=== PATIENT | male | born 1950 | race Caucasian/White ===

== ENCOUNTER 2020-08-10 08:37 | Outpatient (CLI) | payer MEDICARE, SELFPAY | END 2020-08-10 08:38 | disposition home or self-care (01) | PROVIDERS: PCP Family Medicine; Visit Provider Otolaryngology | DX: H90.41 Sensorineural hearing loss, unilateral, right ear, with unrestricted hearing on the contralateral side (principal); H90.72 Mixed conductive and sensorineural hearing loss, unilateral, left ear, with unrestricted hearing on the contralateral side; H69.80 Other specified disorders of Eustachian tube, unspecified ear | CPT/HCPCS: 92557; 92567 ==

== ENCOUNTER 2020-08-21 09:51 | Outpatient (NON) | payer MEDICARE, SELFPAY | END 2020-08-21 09:52 | PROVIDERS: PCP Family Medicine; Visit Provider Otolaryngology | DX: H60.92 Unspecified otitis externa, left ear (principal) | CPT/HCPCS: 87070; 87075; 87077; 87147; 87186; 87205 ==

== ENCOUNTER 2021-05-18 07:55 | Outpatient (CLI) | payer MEDICARE, SELFPAY ==
--- NOTE | 2021-05-18 08:00 | ECG_ITS ---
Measurements Intervals [place] Rate: 56 P: 31 MD: 195 QRS: -4 QRSD: 101 T: 63 QT: 402 QTc: 388 Interpretive Statements SINUS BRADYCARDIA ATRIAL PREMATURE COMPLEXES EARLY PRECORDIAL R/S TRANSITION VOLTAGE CRITERIA FOR LVH BASELINE ARTIFACT- I, II, III, AVR, AVL, AVF BORDERLINE ECG Electronically Signed On 05-18-2021 9:52:53 CDT by Varghese Fairbanks D.O.
[2021-05-18 09:00] LABS: Anion Gap 9 mmol/L (8-16); Blood Urea Nitrogen 13 mg/dL (9-20); Calcium 9.3 mg/dL (8.4-10.2); Carbon Dioxide 30 mmol/L (22-30); Chloride 101 mmol/L (98-107); Estimated Glomerular Filt Rate > 60; Glucose 118 mg/dL (75-110); Sodium 140 mmol/L (137-145)
== END 2021-05-18 07:56 | disposition home or self-care (01) ==
LOC: ANHSURGERY 07:59
PROVIDERS: Anesthesiology; PCP Family Medicine; Visit Provider Otolaryngology
DX: I10 Essential (primary) hypertension (principal); R94.31 Abnormal electrocardiogram [ECG] [EKG]
CPT/HCPCS: 36415; 80048; 93005

== ENCOUNTER 2021-05-21 00:54 | Day surgery (SDC) | payer MEDICARE, SELFPAY ==
[2021-05-14 10:51] VITALS: BMI 30.8
--- NOTE | 2021-05-20 08:04 | PM.IMHP ---
H&P: HPI History of Present Illness Date/Time: 05/20/21 08:04Patient presents with a history of bilateral eustachian tube dysfunction. Presents for planned surgical procedure. Reports no new symptoms or changes in history. Chief Complaint: Eustachian tube dysfunction, hearing loss, otitis media Review of Systems Constitutional: Constitutional: Denies fatigue, Denies fever(s) and Denies lethargy Eyes: Eyes: Denies blurry vision and Denies change in vision ENT: Reports as per HPI Cardiovascular: Cardiovascular: Denies chest pain Respiratory: Respiratory: Denies cough Endocrine: Endocrine: Denies fatigue Hematologic/Lymphatic: Hematologic/Lymphatic: Denies easy bleeding, Denies easy bruising and Denies lymphadenopathy Allergic/Immunologic: Allergic/Immunologic: Denies seasonal rhinorrhea [facility] Past Medical History Medical History (Updated 12/21/20 @ 08:53 by Ninoska Cuevas) Abnormal tympanic membrane of right ear BMI 30.0-30.9,adult Colon cancer screening Hyperlipidemia Osteoarthritis, multiple sites Perforated left tympanic membrane on examination Prostate cancer screening Skin tag Family History Family History Father Family history of lung cancer Mother Diabetes mellitus Social History Social History Smoking packs per day: 1.5 Smoking cigarettes per day: 30.0 Years smoked: 45 Smoking pack-years: 67.50 Smoking status: Former smoker Tobacco type: cigarettes Second hand tobacco smoke exposure: No Smoking end date: 11/13/07 Alcohol intake: current Drinks per week: 14 Substance use: never Substance use type: does not use Gender identity (if verbalized by the patient): Male Spiritual care concerns: No Agree to blood products: Yes Meds Home Medications and Allergies Home Medications Medication Instructions Recorded Confirmed Type safety needles 18 gauge x 1 #6 each 08/18/20 03/29/21 Rx safety needles 21 gauge x 1 1/2 #6 each 08/18/20 03/29/21 Rx syringe (disposable) 3 mL #6 each 08/18/20 03/29/21 Rx aspirin 81 mg tablet,delayed 81 mg PO DAILY 09/08/20 05/14/21 History release metoprolol tartrate 100 mg tablet 100 mg PO DAILY #90 tablet 09/24/20 05/14/21 Rx testosterone cypionate 200 mg/mL 300 mg IM MONTHLY #5 ml 11/16/20 05/14/21 Rx intramuscular oil lovastatin 20 mg tablet 20 mg PO QPM #90 tablet 12/24/20 05/14/21 Rx metformin 500 mg tablet 500 mg PO BID #180 tablet 12/24/20 05/14/21 Rx lisinopril 30 mg tablet 30 mg PO DAILY #90 tablet 12/29/20 05/14/21 Rx multivitamin [One A Day Vitamin] 1 tablet PO DAILY 05/14/21 05/14/21 History Allergies Allergy/AdvReac Type Severity Reaction Status Date / Time diclofenac Allergy Unknown Unknown Verified 05/14/21 10:33 Exam Const: General: cooperative, healthy appearing, comfortable, well developed and alert HENMT: Head: normal to inspection, normocephalic and atraumatic Ears: hearing grossly normal bilaterally, external ears normal, TM's abnormal bilaterally ( right retracted left effusion) and EAC's normal General nose exam: Normal external nose present, Normal nares present, No nasal polyps present, Normal nasal mucous membranes and turbinates present and Normal septum present Face and sinus: normal facial exam Mouth: Yes Normal oral and palatal mucosa present, Yes lip normal, Yes tongue normal, Yes oropharynx normal and Yes moist mucous membranes Teeth and gingiva: dentition normal and gingiva normal Throat: posterior oropharynx normal, tonsils normal and uvula midline Eyes: General: appearance normal, both eyes and all related structures Periorbital: periorbital findings normal Eyelids: eyelids normal Conjunctivae: conjunctivae normal Sclera: sclerae normal Neck: Neck: normal visual inspection, full ROM and no lymphadenopathy Thyroid: thyroid normal Lymphatic: no lymphadenopathy noted Res
[2021-05-21] VITALS (8 sets, daily range): BP systolic 107–144; BP diastolic 68–93; PULSE 47–90; RESP 15–24; TEMP 35.9–36.8; O2SAT 93–100
[2021-05-21] MEDS: ACETAMINOPHEN 500 MG TABLET 1000 MG PO (06:34)
[2021-05-21] MEDS: LACTATED RINGERS 1,000 ML 30 ML IV CONT (06:34)
[2021-05-21 06:43] LABS: Glucose Point of Care 125 mg/dl (65-105)
--- NOTE | 2021-05-21 06:45 | WPDANESEPPF ---
Anes - Initial Pre Proc Eval Procedure: Operation Date: 05/21/21 07:30 Proposed Procedures p Nasal Endoscopy, - Heriberto Reynolds MD s Bilateral Eustachian Tube Dilation - Heriberto Reynolds MD Date/Time: 05/21/21 06:45 Surgeon: Heriberto Reynolds MD Pre Op Diagnosis: bilat eustachian tube dysfunction Patient Data Age: 71 Gender: M Height: 1.96 m Weight: 119 kg Allergies Allergy/AdvReac Type Severity Reaction Status Date / Time diclofenac Allergy Unknown Unknown Verified 05/14/21 10:33 Home Medications Medication Instructions Recorded Confirmed Type safety needles 18 gauge x 1 #6 each 08/18/20 03/29/21 Rx safety needles 21 gauge x 1 1/2 #6 each 08/18/20 03/29/21 Rx syringe (disposable) 3 mL #6 each 08/18/20 03/29/21 Rx aspirin 81 mg tablet,delayed 81 mg PO DAILY 09/08/20 05/14/21 History release metoprolol tartrate 100 mg tablet 100 mg PO DAILY #90 tablet 09/24/20 05/14/21 Rx testosterone cypionate 200 mg/mL 300 mg IM MONTHLY #5 ml 11/16/20 05/14/21 Rx intramuscular oil lovastatin 20 mg tablet 20 mg PO QPM #90 tablet 12/24/20 05/14/21 Rx metformin 500 mg tablet 500 mg PO BID #180 tablet 12/24/20 05/14/21 Rx lisinopril 30 mg tablet 30 mg PO DAILY #90 tablet 12/29/20 05/14/21 Rx multivitamin [One A Day Vitamin] 1 tablet PO DAILY 05/14/21 05/14/21 History Laboratory Tests 05/21/21 06:33 POC Capillary Glucose 125 mg/dl H mg/dl (65-105) Patient hx anesthesia problems: none Family hx anesthesia problems: none PMFSH Past Medical History Medical History Abnormal tympanic membrane of right ear BMI 30.0-30.9,adult Colon cancer screening Hyperlipidemia Osteoarthritis, multiple sites Perforated left tympanic membrane on examination Prostate cancer screening Skin tag Family History Family History Father Family history of lung cancer Mother Diabetes mellitus Social History Social History Smoking packs per day: 1.5 Smoking cigarettes per day: 30.0 Years smoked: 45 Smoking pack-years: 67.50 Smoking status: Former smoker (Quit 15 years ago) Tobacco type: cigarettes Second hand tobacco smoke exposure: No Smoking end date: 11/13/07 Alcohol intake: current Drinks per week: 14 Substance use: never Substance use type: does not use Living arrangements: with family Gender identity (if verbalized by the patient): Male Spiritual care concerns: No Agree to blood products: Yes Anes - Eval Final PreProcedure Day of Procedure 05/21/21 06:45 Patient weight: obese Heart: regular rate and rhythm Lungs: clear to auscultation Airway: Mallampati scale class II Neurological: alert and oriented Last oral intake: >/= 8 hours ASA classification: III Emergent: no Anesthetic plan: proceed Anesthesia type and monitoring: general LMA and standard monitoring Informed Consent: The patient's anesthetic plan and its attendant risks and benefits were discussed with the patient/family/POA. Questions were solicited and answers provided to the satisfaction of the patient/family/POA.
--- NOTE | 2021-05-21 07:08 | WPDHPUPDATE1 ---
History and Physical Update Update Date/Time: 05/21/21 07:08 History and Physical has been reviewed, including an updated exam of the patient. There are NO changes in the patient's condition. Risks, benefits, and alternatives have been discussed and questions answered. Patient agrees to proceed with procedure.
[2021-05-21] MEDS: OXYMETAZOLINE HCL 0.05% NAS 15 ML BTL (*BKC) 1 SPRAY NASAL (07:43)
--- NOTE | 2021-05-21 08:09 | P.OP_ITS ---
Procedure Note - Detailed Date of Procedure 05/21/21 Pre-op Diagnosis bilat eustachian tube dysfunction Post-op Diagnosis same Procedure Performed 1. Nasal endoscopy 2. Bilateral eustachian tube dysfunction Surgeon Heriberto Reynolds MD Anesthesia general Indications hearing loss, chronic otitis media, bilateral eustachian tube dysfunction Findings successful dilation bilaterally left inferior septal deviation boggy posterior left inferior turbinate Description of Procedure the patient was correctly identified and consent was verified in the preoperative holding area. The patient was then brought to the operating room and a time-out was performed. General anesthesia was induced and endotracheal tube was secured the patient's airway and taped to the left lower lip. The patient was then prepped and draped for the aforementioned procedures Afrin- soaked pledgets were inserted for 5 minutes and then removed. Under 0 degree endoscopic guidance the bilateral nasal passages were examined with the aforeme ntioned findings noted. The balloon device was inserted in the right nasal passage, inserted into the eustachian tube orifice, and inflated to 12 atmospheres for 2 minutes. It was then removed the same procedure was performed on the left side. On the left side there scant bleeding from the inferior turbinate hypertrophy and septal deviation. Implants None Estimated Blood Loss 1 Drains No Packing No Pathology none sent Complications No immediate complications Condition stable Disposition PACU
[2021-05-21 08:13] LABS: Glucose Point of Care 121 mg/dl (65-105)
--- NOTE | 2021-05-21 08:55 | SUR.PHASEI ---
0850- PT HEART RATE 55, RHYTHM IRREGULAR. P WAVES NOTED. SINUS RHYTHM NOTED.CALLED DR. AMBROSE TO REVIEW. DR. AMBROSE TO BEDSIDE IN PACU.
== END 2021-05-21 09:50 | disposition home or self-care (01) ==
PROVIDERS: PCP Family Medicine; Visit Provider Otolaryngology
PROC: (CPT 69706; principal; 2021-05-21 07:30)
PROC: (CPT 69706; 2021-05-21 07:30)
DX: H69.80 Other specified disorders of Eustachian tube, unspecified ear (principal); E78.5 Hyperlipidemia, unspecified; Z87.891 Personal history of nicotine dependence; Z79.82 Long term (current) use of aspirin; Z79.84 Long term (current) use of oral hypoglycemic drugs; E66.9 Obesity, unspecified; Z68.31 Body mass index [BMI] 31.0-31.9, adult
CPT/HCPCS: 69706; 82948; A9270; C1726; J0330; J1100; J2250; J2405; J2704; J3010; J7120

== ENCOUNTER 2022-01-23 10:53 | Emergency (ER) | payer MEDICARE, SELFPAY ==
--- NOTE | ~2022-01-23 | XR_ITS ---
EXAMINATION: XR hip RT min 3V w AP pelvis DATE: 01/23/2022 12:19 INDICATION: Right hip pain. TECHNIQUE: An anteroposterior view of the pelvis and 3 views of right hip were obtained. COMPARISON: None. FINDINGS: Bone alignment is normal. No fracture. There is mild osteoarthritis of the hips. There is s evere lumbar spondylosis. IMPRESSION: 1. Mild osteoarthritis of the hips. Reviewed, dictated and finalized at location A.
--- NOTE | ~2022-01-23 | US_ITS ---
EXAMINATION: US venous doppler LE RT DATE: 01/23/2022 13:05 INDICATION: Right lower limb pain. TECHNIQUE: Grayscale ultrasound images without and with compression and Doppler ultrasound images of the right lower extremity veins were obtained. COMPARISON: None. FINDINGS: The visualized portions of right common femoral vein, profunda (deep) femoral vein, femoral vein, per vivas veins, posterior tibial veins, and greater saphenous vein outflow are patent. Again seen is per ipheral thrombus in right popliteal vein. IMPRESSION: 1. Deep vein thrombosis in right popliteal vein, which may be recurrent or chronic. Reviewed, dictated and finalized at location A. IMPRESSION: 1. Deep vein thrombosis in right popliteal vein, which may be recurrent or chr onic.
--- NOTE | ~2022-01-23 | XR_ITS ---
EXAMINATION: XR lumbar spine 2-3V DATE: 01/23/2022 12:19 INDICATION: Low back pain. TECHNIQUE: 3 views of lumbar spine were obtained. COMPARISON: Lumbar spine MRI 09/10/2019 FINDINGS: There is 7 degrees dextrocurvature of the spine. Vertebral body heights are normal. There i s severely decreased disc height at L1-L2, moderately decreased disc height at L2-L3 and L3-L4, and m ildly decreased disc height at L4-L5 with endplate remodeling. There is multilevel severe facet joint osteoarthritis. IMPRESSION: 1. Severe lumbar spondylosis. Reviewed, dictated and finalized at location A.
--- NOTE | ~2022-01-23 | US_ITS ---
EXAMINATION: US breast RT limited DATE: 01/23/2022 12:57 INDICATION: Right breast erythema. TECHNIQUE: Multiple grayscale and Doppler ultrasound images of the right breast were obtained. COMPARISON: None FINDINGS: In the patient's area of concern in the right breast at 12:00, 3 cm from the nipple, there is a 7 x 3 x 9 mm hypoechoic nonshadowing subcutaneous mass. IMPRESSION: 1. 7 x 3 x 9 mm hypoechoic subcutaneous mass in the right breast at 12:00, likely phlegmon. No draina ble fluid. Reviewed, dictated and finalized at location A. IMPRESSION: 1. 7 x 3 x 9 mm hypoechoic subcutaneous mass in the right breast at 12:00, like ly phlegmon. No drainable fluid.
[2022-01-23 11:00] VITALS: BP 174/89; PULSE 62; RESP 16; TEMP 36.5; O2SAT 95
--- NOTE | 2022-01-23 12:17 | ED.GENADULT ---
HPI - General Adult General Chief complaint: Unspecified Stated complaint: R leg pain Time Seen by Provider: 01/23/22 11:36 Source: patient Mode of arrival: ambulatory Limitations: no limitations History of Present Illness HPI narrative: This is a 71-year-old male that presents to the emergency department for right hip pain present over the last week. No known injury or trauma. Reports the pain is worse with walking and relieved with rest. He has intermittently been taking ibuprofen for pain. Reports he has had a blood clot before which concerned him and prompted him to be seen. Also reports a wound to the left great toe for which he is seeing a repair miller and is on Augmentin. Reports a wound to the right breast. Denies fever, chest pain, shortness of breath, erythema or edema of the leg, or numbness. Related Data Home Medications Medication Instructions Recorded Confirmed aspirin 81 mg tablet,delayed 81 mg PO DAILY 09/08/20 09/20/21 release multivitamin 1 tablet PO DAILY 05/14/21 09/20/21 amoxicillin-pot clavulanate 1 tablet PO Q12H 01/23/22 01/23/22 Allergies Allergy/AdvReac Type Severity Reaction Status Date / Time diclofenac Allergy Unknown Unknown Verified 01/23/22 11:17 Review of Systems Review of Systems: CONSTITUTIONAL: Denies fever SKIN: Denies rash MUSCULOSKELETAL: Reports back pain, joint pain, and myalgia. NEUROLOGIC: Denies numbness, or weakness. All systems reviewed & are unremarkable except as noted in HPI and below PMFSH Past Medical History Medical History Abnormal tympanic membrane of right ear BMI 30.0-30.9,adult Colon cancer screening Hyperlipidemia Osteoarthritis, multiple sites Perforated left tympanic membrane on examination Prostate cancer screening Skin tag Family History Family History Father Family history of lung cancer Mother Diabetes mellitus Social History Social History Smoking packs per day: 1.5 Smoking cigarettes per day: 30.0 Years smoked: 45 Smoking pack-years: 67.50 Tobacco type: cigarettes Second hand tobacco smoke exposure: No Smoking end date: 11/13/07 Alcohol intake: current Drinks per week: 14 Substance use: never Substance use type: does not use Gender identity (if verbalized by the patient): Male Sexual Orientation (if Verbalized by the Patient): Straight or Heterosexual Spiritual care concerns: No Agree to blood products: Yes Exam Narrative: GENERAL: Well-appearing, well-nourished, and in no acute distress. HEAD: Normocephalic, atraumatic. EYES: EOMI. CHEST: No respiratory distress. Right breast with 2cm cystic area with mild surrounding erythema HEART: Regular rate BACK: No midline spinal tenderness EXTREMITIES: Normal range of motion. No edema or erythema. Strength equal in bilateral lower extremities (5/5). Small wound to the left great toe without erythema, edema or abnormal drainage, appears to be healing SKIN: Warm, dry, no rash. NEURO: No focal deficits. Alert and oriented x3. PSYCH: Normal mood and affect Course Vital Signs Vital signs: Vital Signs Temperature 97.7 F 01/23/22 11:00 Pulse Rate 62 01/23/22 11:00 Respiratory Rate 16 01/23/22 11:00 Blood Pressure 174/89 H 01/23/22 11:00 Pulse Oximetry 95 01/23/22 11:00 Temperature 97.7 F 01/23/22 11:00 Pulse Rate 62 01/23/22 11:00 Respiratory Rate 16 01/23/22 11:00 Blood Pressure 174/89 H 01/23/22 11:00 Pulse Oximetry 95 01/23/22 11:00 Medical Decision Making MDM Narrative Medical decision making narrative: Patient presents to the emergency department for several complaints. Reporting right upper leg pain. Reporting a cyst on his right breast. Also reporting a wound to the left great toe. He is afebrile and nontoxic-appearing. He denies an
[2022-01-23 13:17] LABS: Basophils Absolute Auto 0.1 K/mm3 (0.0-0.1); Basophils Percent Auto 0.6 % (0.2-1.2); Eosinophils Absolute Auto 0.1 K/mm3 (0-0.3); Hematocrit 47.5 % (42.0-52.0); Hemoglobin 16.1 g/dL (14.0-18.0); Immature Granulocyte Absolute 0.03 K/mm3 (0.00-0.031); Immature Granulocyte Percent A 0.4 % (0-0.5); Lymphocytes Absolute Auto 1.42 K/mm3 (0.9-3.2); Lymphocytes Percent Auto 17.3 % (18.3-44.2); Mean Corpuscular HGB Conc 33.9 g/dl (32-36); Mean Corpuscular Hemoglobin 35.9 pg (26-34); Mean Corpuscular Volume 105.8 fl (80-100); Mean Platelet Volume 9.3 fl (7.4-10.4); Monocytes Absolute Auto 0.8 K/mm3 (0.1-0.6); Monocytes Percent Auto 9.4 % (2.6-8.5); Neutrophils Absolute Auto 5.9 K/mm3 (1.3-6.7); Neutrophils Percent Auto 71.3 % (45.5-73.1); Platelet Count Result 215 k/mm3 (150-375); Red Blood Count 4.49 M/mm3 (4.6-6.20); Red Cell Distribution Width 13.2 % (11.5-14.5); White Blood Count 8.2 K/mm3 (4.5-10.0)
[2022-01-23 13:27] LABS: INR 1.1; Partial Thromboplastin Time 24.8 SECONDS (22.3-36.8); Prothrombin Time 13.4 Seconds (11.1-14.7)
[2022-01-23 13:34] LABS: Anion Gap 7 mmol/L (8-16); Blood Urea Nitrogen 16 mg/dL (9-20); Calcium 9.9 mg/dL (8.4-10.2); Carbon Dioxide 28 mmol/L (22-30); Chloride 105 mmol/L (98-107); Estimated CRCL calculation 121 ml/min; Estimated Glomerular Filt Rate > 60; Glucose 101 mg/dL (65-110); Potassium 4.9 mmol/L (3.4-5.0); Sodium 140 mmol/L (137-145)
[2022-01-23 13:48] LABS: Erythrocyte Sedimentation Rate 1 mm/hr (0-20)
[2022-01-23 13:49] LABS: CRP < 0.5 mg/dL (<1.0)
--- NOTE | 2022-01-23 15:22 | PCCCNOTE ---
Called to pharmacy to velasco Xarelto 15mg BID for 21 days/ 20mg daily, per pharmacy will be 300 dollars., since patient has to meet a prescription deductible. Information provided to JOSE R Bauman, 30 day trial offer does include starter pack. Met w/ patient and at bedside, and explained cost of 300 dollars due to deductible. Explained trial offer and encouraged to call [employer] customer service for additional savings offers. verbalized understanding and will review their deductible coverage.
== END 2022-01-23 15:26 | disposition home or self-care (01) ==
PROVIDERS: Physician Assistant; Emergency Provider Emergency Medicine; PCP Family Medicine
DX: I82.431 Acute embolism and thrombosis of right popliteal vein (principal); L03.313 Cellulitis of chest wall; E78.5 Hyperlipidemia, unspecified; M19.90 Unspecified osteoarthritis, unspecified site; Z87.891 Personal history of nicotine dependence; Z79.82 Long term (current) use of aspirin; M47.816 Spondylosis without myelopathy or radiculopathy, lumbar region; M16.0 Bilateral primary osteoarthritis of hip; N63.11 Unspecified lump in the right breast, upper outer quadrant
CPT/HCPCS: 36415; 72100; 73502; 76642; 80048; 85025; 85610; 85652; 85730; 86140; 93971; 99284; A9270

== ENCOUNTER 2022-02-15 14:04 | Outpatient (CLI) | payer MEDICARE, SELFPAY ==
--- NOTE | ~2022-02-15 | US_ITS ---
EXAMINATION: US art doppler w press LE BI DATE: 02/15/2022 15:03 INDICATION: Type 2 diabetes with foot ulcer TECHNIQUE: Segmental pressures and plethysmographic and Doppler waveforms of the brachial and lower e xtremity arteries were obtained. COMPARISON: None. FINDINGS: Right and left brachial artery pressures of 147 mm Hg and 136 mm Hg, respectively, are concordant (no rmal difference <= 30 mmHg). The left high-thigh pressure index is 1.12 (normal > 1.2). The right hig h thigh pressure index was unable to be obtained due to inability to occlude the vessel at the right thigh. The right ankle-brachial index (AJ) is 0.99 (normal >= 0.9-1). The right great toe-brachial index (T BI) is 0.72 (normal >= 0.6-0.8). The right lower extremity segmental pressure gradients are increased between the right [id number] popliteal artery and the arteries at the right ankle (normal gradie nts <= 20-30 mmHg between adjacent levels on the same leg or the same levels on the two legs). Arteri al waveforms are biphasic with brisk systolic upstrokes throughout the arteries of the right lower li mb. The left AJ is 1.08. The left TBI is 0.72. The left lower extremity segmental pressure gradients are increased between the left dorsalis pedis artery and the left [id number] popliteal artery and po sterior tibial artery. Arterial waveforms are biphasic with brisk systolic upstrokes throughout the a rteries of the left lower limb. IMPRESSION: 1. No significant arterial occlusive disease in the lower limbs with normal bilateral ABIs and TBIs. Reviewed, dictated and finalized at location B. IMPRESSION: 1. No significant arterial occlusive disease in the lower limbs with normal jorge ateral ABIs and TBIs.
== END 2022-02-15 14:05 | disposition home or self-care (01) ==
PROVIDERS: PCP Family Medicine; Visit Provider Podiatrist Foot & Ankle Surgery
DX: E11.621 Type 2 diabetes mellitus with foot ulcer (principal); Z79.4 Long term (current) use of insulin; L97.529 Non-pressure chronic ulcer of other part of left foot with unspecified severity; L97.519 Non-pressure chronic ulcer of other part of right foot with unspecified severity
CPT/HCPCS: 93923

== ENCOUNTER → 2022-03-09 06:56 | Outpatient (CLI) | payer MEDICARE, SELFPAY ==
--- NOTE | ~2022-03-09 | MR_ITS ---
EXAMINATION: MR lumbar spine wo con DATE: 03/09/2022 07:32 INDICATION: Lumbar radiculopathy TECHNIQUE: Magnetic resonance imaging (MRI) of the lumbar spine was performed without intravenous con trast. Sequences included sagittal T2-weighted FSE, sagittal T2-weighted FS FSE, sagittal T1-weighted FSE, and axial T2-weighted FSE. COMPARISON: Radiographs dated 01/23/2022 and MRI dated 09/10/2019 FINDINGS: Lumbarized S1 segment with 5 more cephalad lumbar segments L1-L5. 2 mm retrolisthesis L2 on L3 and L3 on L4 and 2 mm anterolisthesis L5 on S1. Minimal anterior wedging at T12 and L1. There small lymph n odes throughout multiple endplates in the lower thoracic and mid and upper lumbar spine. Severe disc height loss at T12-L1, L1-L2 and L2-L3 with associated mild fibrofatty degenerative endplate changes. Marrow signal is otherwise normal throughout. Additional moderate disc height loss at T11-T12, L3-L4 and L4-L5. The conus medullaris terminates at L1-L2. There is normal signal in the caudal spinal cor d. Partially visualized 4.2 cm left renal cyst. Paravertebral soft tissues are otherwise unremarkable . The following disc levels are specifically discussed: T12-L1: Disc is bulging with annular fissure. There is mild left and moderate right facet joint osteo arthritis. There is moderate bilateral neural foraminal stenosis. There is mild to moderate central c anal stenosis with mild indentation of the ventral surface of the cord. L1-L2: Disc is bulging with annular fissure. There is moderate bilateral facet joint osteoarthritis. There is moderate left and mild to moderate right neural foraminal stenosis. There is mild central ca nal stenosis. L2-L3: Disc is bulging with annular fissure. There is moderate left and mild to moderate right facet joint osteoarthritis. There is moderate bilateral neural foraminal stenosis. There is mild central ca nal stenosis. L3-L4: Disc is bulging with annular fissure. There is moderate left and mild right facet joint osteoa rthritis. There is mild to moderate bilateral neural foraminal stenosis. There is moderate central ca nal stenosis. L4-L5: Disc is bulging. There is severe bilateral facet joint osteoarthritis. There is mild left and mild to moderate right neural foraminal stenosis. There is mild central canal stenosis. L5-S1: Disc is bulging with annular fissure. There is severe bilateral facet joint osteoarthritis. Th ere is mild bilateral neural foraminal stenosis. There is no central canal stenosis. IMPRESSION: 1. Minimal change in severe lumbar spondylosis. Reviewed, dictated and finalized at location B.
== END ==
PROVIDERS: PCP Family Medicine; Visit Provider Physical Medicine & Rehabilitation
DX: M47.26 Other spondylosis with radiculopathy, lumbar region (principal)
CPT/HCPCS: 72148

== ENCOUNTER 2022-03-22 13:01 | Outpatient (CLI) | payer MEDICARE, SELFPAY ==
--- NOTE | ~2022-03-22 | US_ITS ---
EXAMINATION: US scrotum doppler DATE: 03/22/2022 14:40 INDICATION: Right scrotal pain. TECHNIQUE: Grayscale and Doppler ultrasound images of the testes were obtained. COMPARISON: None. FINDINGS: The right testis measures 3.6 x 2.9 x 2.3. The left testis measures 3.7 x 3.4 x 1.9. There is normal vascular flow to both testes. The right epididymis is normal with normal vascular flow. The left epididymis is normal with normal vascular flow. No hydrocele. Large left varicocele. IMPRESSION: 1. Large left varicocele. Reviewed, dictated and finalized at location K. IMPRESSION: 1. Large left varicocele.
== END 2022-03-22 13:02 | disposition home or self-care (01) ==
LOC: ANHIMG 13:01
PROVIDERS: PCP Family Medicine; Visit Provider Urology
DX: N50.811 Right testicular pain (principal); I86.1 Scrotal varices
CPT/HCPCS: 76870; 93976

== ENCOUNTER → 2022-04-04 16:01 | Outpatient (CLI) | payer MEDICARE, SELFPAY ==
--- NOTE | ~2022-04-04 | XR_ITS ---
EXAM: XR knee RT min 4V DATE: 04/04/2022 16:23 HISTORY: M17.10 - Unilateral primary osteoarthritis, unspecified knee . COMPARISON: None available. FINDINGS: Decreased mineralization. Severe medial joint space narrowing. Moderate tricompartmental o steophytosis. Small joint effusion vascular calcifications. Cortical irregularity along the weightbea ring surface of the medial femoral condyle with subchondral cyst and sclerosis. IMPRESSION: Osteochondral lesion on the medial condyle. Tricompartmental osteoarthritic change, sever e in the medial compartment. Reviewed, dictated and finalized at location K. IMPRESSION: Osteochondral lesion on the medial condyle. Tricompartmental osteoa rthritic change, severe in the medial compartment.
== END ==
PROVIDERS: PCP Physician Assistant; Visit Provider Physician Assistant
DX: M17.10 Unilateral primary osteoarthritis, unspecified knee (principal)
CPT/HCPCS: 73564

== ENCOUNTER 2022-05-26 00:51 | Emergency (ER) | payer MEDICARE, SELFPAY ==
[2022-05-26] VITALS (80 sets, daily range): BP systolic 95–143; BP diastolic 48–85; PULSE 104–155; RESP 16–32; TEMP 36.6–38.2; O2SAT 88–100
--- NOTE | ~2022-05-26 | XR_ITS ---
EXAMINATION: XR chest 2V DATE: 05/26/2022 02:27 INDICATION: Shortness of breath. TECHNIQUE: Frontal and lateral views of the chest were obtained. COMPARISON: Chest 2 views 10/23/2009, CT abdomen and pelvis 05/26/2022 FINDINGS: There is mild elevation of left hemidiaphragm. There is mild atelectasis in the lower lung zones. No pleural effusion or pneumothorax. The heart size is normal. IMPRESSION: 1. Mild atelectasis in the lower lung zones. Reviewed, dictated and finalized at location A.
--- NOTE | ~2022-05-26 | CT_ITS ---
EXAMINATION: CT brain wo con DATE: 05/26/2022 16:31 INDICATION: Altered mental state TECHNIQUE: Computed tomography (CT) of the head was performed without intravenous contrast. The mA wa s adjusted according to patient size. Iterative reconstruction technique was employed. Exam dose: 68 1.00 mGy-cm total exam DLP. COMPARISON: None FINDINGS: Examination is limited due to motion artifact. No apparent intracranial mass lesion or hemorrhage or cerebrovascular accident is detected. There is no midline shift or mass effect. No subdural or epidural hematoma. Mild age consistent cerebral volume loss. Ventricles are of normal size. No subdural or epidural hematoma. Status post left mastoidectomy. Mastoid air cells are minimally developed bilaterally. The paranasal sinuses are unremarkable. No fracture or bone destruction of the cranial vault. IMPRESSION: Limited examination due to motion artifact No acute intracranial finding or skull fracture Reviewed, dictated and finalized at [facility]. Reviewed, dictated and finalized at location A.
--- NOTE | ~2022-05-26 | CT_ITS ---
EXAMINATION: CT abdomen pelvis wo con DATE: 05/26/2022 04:26 INDICATION: Flank pain. TECHNIQUE: Computed tomography (CT) of the abdomen and pelvis was performed without intravenous contr ast. Automated exposure control and iterative reconstruction technique were employed. The dose-length product was 1476.65 mGy-cm. COMPARISON: None. FINDINGS: The visualized portions of the lung bases demonstrate elevation of left hemidiaphragm and m ild bilateral atelectasis. No pleural effusion. The heart size is normal. No pericardial effusion. Th e liver, gallbladder, spleen, pancreas, and adrenal glands are normal. There are cysts in the kidneys measuring up to 6.4 cm in the left. There are approximately 3 stones in right kidney measuring up to 3 mm. There is diverticulosis of the colon without evidence of diverticulitis. There are no dilated loops of bowel. The appendix is normal. There are no pathologically enlarged lymph nodes. There is no free intraperitoneal fluid. There is a left inguinal hernia containing fat. There is a right hip jaylon nt effusion with erosions of bone included marked volume loss of the femoral head. There is gas in th e hip joint and some of the adjacent musculature. There is asymmetric enlargement of the right iliacu s and gluteus minimus muscles. There is severe lumbar spondylosis. IMPRESSION: 1. Right hip septic arthritis. Myositis near right hip. Reviewed, dictated and finalized at location A.
--- NOTE | ~2022-05-26 | NM_ITS ---
EXAMINATION: NM pulmonary perfusion DATE: 05/26/2022 13:27 INDICATION: Hypoxia. TECHNIQUE: 5.35 mCi Tc-99m MAA was administered intravenously for perfusion images. Scintigraphic im ages of the chest were obtained. COMPARISON: Chest 2 views 05/26/2022, CT abdomen and pelvis 05/26/2022 FINDINGS: Perfusion images show small defects in the lower lobes. IMPRESSION: 1. Pulmonary embolism absent (low probability). Reviewed, dictated and finalized at location A.
--- NOTE | ~2022-05-26 | XR_ITS ---
XR hip RT 2V w AP pelvis 05/26/2022 17:36 Indication: Right hip pain. 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 Pelvic rings are intac t. No acute fracture is identified. Impression: 1: Collapsed right femoral head secondary to avascular necrosis. Reviewed, dictated and finalized at location A. Impression: 1: Collapsed right femoral head secondary to avascular necrosis.
--- NOTE | ~2022-05-26 | XR_ITS ---
EXAMINATION: XR lg joint inject/asp w image DATE: 05/26/2022 11:39 INDICATION: Right hip arthritis. TECHNIQUE: A time-out was performed to verify the patient's name, date of , and procedure to b e performed. The procedure including the risks, benefits, and alternatives was discussed with the pat ient. Risks discussed included bleeding and infection. The patient understood the risks and agreed to proceed. The skin overlying the right hip joint was prepped and draped in usual sterile fashion. A nesthetic was administered with 1% lidocaine subcutaneously. An 18 G needle was advanced under fluor oscopic guidance into the joint in several spots. No fluid could be aspirated. The needle was remove d and the entry site was cleaned and dressed. There were no immediate complications. Fluoroscopy exp osure time was 0.1 minutes. The total number of images was 3. FINDINGS: Real-time fluoroscopy demonstrates the needle in the right hip joint. IMPRESSION: 1. Fluoroscopy guided right hip joint aspiration yielding no fluid. Reviewed, dictated and finalized at location A.
--- NOTE | 2022-05-26 01:40 | ECG_ITS ---
Measurements Intervals [place] Rate: 114 P: 13 TN: 153 QRS: -1 QRSD: 92 T: 18 QT: 295 QTc: 406 Interpretive Statements SINUS TACHYCARDIA ATRIAL COUPLETS AND ATRIAL PREMATURE COMPLEXES BASELINE ARTIFACT- I, III, AVR, AVL, AVF, V1-V3 ABNORMAL ECG Electronically Signed On 05-26-2022 6:40:27 CDT by Varghese Fairbanks D.O.
[2022-05-26 02:21] LABS: Hematocrit 40.6 % (42.0-52.0); Hemoglobin 13.5 g/dL (14.0-18.0); Mean Corpuscular HGB Conc 33.3 g/dl (32-36); Mean Corpuscular Hemoglobin 32.8 pg (26-34); Mean Corpuscular Volume 98.5 fl (80-100); Mean Platelet Volume 10.1 fl (7.4-10.4); Platelet Count Result 180 k/mm3 (150-375); Red Blood Count 4.12 M/mm3 (4.6-6.20); Red Cell Distribution Width 16.4 % (11.5-14.5)
[2022-05-26 02:29] LABS: INR 3.2; Prothrombin Time 31.4 Seconds (11.1-14.7)
[2022-05-26 02:30] LABS: Partial Thromboplastin Time 53.4 SECONDS (22.3-36.8)
--- NOTE | 2022-05-26 02:31 | ED.GENADULT ---
HPI - General Adult General Chief complaint: Fall <Peter Garcia MD - Last Filed: 05/27/22 07:03> Stated complaint: FALL <Peter Garcia MD - Last Filed: 05/27/22 07:03> Time Seen by Provider: 05/26/22 01:41 <Peter Garcia MD - Last Filed: 05/27/22 07:03> History of Present Illness HPI narrative: Patient is a 72-year-old male who presents the ER with reports of weakness. Ongoing over the last day. Reports he is not urinating and has had poor oral intake. He has diffuse body aches and occasional sweats. He has mild shortness of breath and was found hypoxic on arrival here and is now requiring 2 L of nasal cannula O2. Denies sinus congestion or sore throat or productive cough. No known sick contacts. No loss of taste or smell. Patient also found to be tachycardic and hypertensive on arrival as well. Patient is anticoagulated for history of blood clots. Patient went to the bathroom prior to arrival and was weak and fell onto his buttock. He did not strike his head or lose consciousness. <Peter Garcia MD - Last Filed: 05/27/22 07:03> Related Data Home medications: Home Medications Medication Instructions Recorded Confirmed aspirin 81 mg tablet,delayed 81 mg PO DAILY 09/08/20 05/02/22 release (Adult Low Dose Aspirin) multivitamin 1 tablet PO DAILY 05/14/21 05/02/22 <Peter Garcia MD - Last Filed: 05/27/22 07:03> Allergies/adverse reactions: Allergies Allergy/AdvReac Type Severity Reaction Status Date / Time diclofenac Allergy Unknown Unknown Verified 05/02/22 13:58 <Peter Garcia MD - Last Filed: 05/27/22 07:03> Review of Systems Review of Systems: All systems reviewed & are unremarkable except as noted in HPI and below <Peter Garcia MD - Last Filed: 05/27/22 07:03> Constitutional: Constitutional: Denies chills, Reports fatigue and Denies fever(s) <Peter Garcia MD - Last Filed: 05/27/22 07:03> ENT: Denies nasal congestion and Denies sore throat <Peter Garcia MD - Last Filed: 05/27/22 07:03> Cardiovascular: Cardiovascular: Denies chest pain, Reports rapid heart rate and Denies radiating jaw, neck or arm pain <Peter Garcia MD - Last Filed: 05/27/22 07:03> Respiratory: Respiratory: Denies cough, Denies dyspnea and Denies wheezing <Peter Garcia MD - Last Filed: 05/27/22 07:03> Gastrointestinal: Gastrointestinal: Denies abdominal pain, Denies diarrhea, Denies nausea and Denies vomiting <Peter Garcia MD - Last Filed: 05/27/22 07:03> Genitourinary: Genitourinary: Reports oliguria, Denies dysuria and Denies urinary frequency <Peter Garcia MD - Last Filed: 05/27/22 07:03> Musculoskeletal: Musculoskeletal: Reports myalgias and Denies joint swelling <Peter Garcia MD - Last Filed: 05/27/22 07:03> Integumentary/Breasts: Skin/Breast: Denies erythema and Denies rash <Peter Garcia MD - Last Filed: 05/27/22 07:03> [facility] Past Medical History Medical History: Medical History (Updated 05/26/22 @ 18:31 by Ellen Gonzalez MD) Abnormal tympanic membrane of right ear BMI 30.0-30.9,adult Colon cancer screening History of blood clots Hypercholesterolemia Hyperlipidemia Hypertension Osteoarthritis, multiple sites Perforated left tympanic membrane on examination Prostate cancer screening Skin tag <Peter Garcia MD - Last Filed: 05/27/22 07:03> Surgical History Surgical History: Surgical History (Updated 05/26/22 @ 02:35 by Peter Garcia MD) History of sinus surgery <Peter Garcia MD - Last Filed: 05/27/22 07:03> Family History Family History: Family History Father Family history of lung cancer Mother Diabetes mellitus <Peter Garcia MD - Last Filed: 05/27/22 07:03> Social History Social History: Social History Smoking pac
[2022-05-26 02:36] LABS: Lactic Acid Reflex 1.8 mmol/L (0.7-2.0)
[2022-05-26 02:47] LABS: Band Neutrophils Percent 8 % (0-6); Lymphocytes Absolute Manual 0.45 K/mm3 (1.1-4.5); Monocytes Absolute Manual 0.54 K/mm3 (0.1-0.90); Monocytes Percent Manual 6 % (3-9); Neutrophils Absolute Manual 8.01 K/mm3 (1.3-6.7); Neutrophils Percent Manual 81 % (46-73); Platelet Estimate Adequate (Adequate); Total Cells Counted 100
[2022-05-26 02:53] LABS: Alanine Aminotransferase 25 U/L (6-50); Albumin Level 3.4 g/dL (3.5-5.1); Alkaline Phosphatase 83 U/L (38-126); Anion Gap 11 mmol/L (8-16); Aspartate Amino Transferase 29 U/L (17-59); Bilirubin,Total 0.9 mg/dL (0.2-1.3); Blood Urea Nitrogen 92 mg/dL (9-20); Calcium 9.1 mg/dL (8.4-10.2); Carbon Dioxide 24 mmol/L (22-30); Chloride 97 mmol/L (98-107); Estimated CRCL calculation 24 ml/min; Estimated Glomerular Filt Rate 19; Glucose 116 mg/dL (65-110); Potassium 4.4 mmol/L (3.4-5.0); Sodium 132 mmol/L (137-145)
[2022-05-26 03:02] LABS: SARS-CoV-2 RNA PCR Negative
[2022-05-26 03:11] LABS: CRP > 45.0 mg/dL (<1.0)
[2022-05-26 04:31] LABS: Appearance Urine Slightly Cloudy (Clear); Bilirubin Urine 1+ (Negative); Blood Urine 2+ (Negative); Color Urine Yellow (Yellow); Glucose Urine UA Negative (Negative); Ketones Urine Trace mg/dL (Negative); Leukocyte Esterase Ur Trace LEU/UL (Negative); Nitrate Urine Negative (Negative); Protein Urine 2+ mg/dL (Negative); Specific Grav Ur 1.025 (1.001-1.035); Urobilinogen Urine 0.2 mg/dL (<2.0)
[2022-05-26 04:35] LABS: Bacteria Urine Trace /hpf; Mucus Urine Rare /lpf; RBC Urine 21-50 /hpf (0-2); Squamous Epithelial Cell Urine Occasional /hpf (Few); WBC Urine 21-30 /hpf
[2022-05-26 04:36] LABS: Add Urine Microscopic? YES
[2022-05-26] MEDS: MORPHINE SULFATE (*CRX) 4 MG/ML INJ IV PUSH ×2 (05:00→20:09)
[2022-05-26] MEDS: HYDROmorphone HCL INJ (*CRX) 1 MG/ML SYR IV PUSH (06:58)
--- NOTE | 2022-05-26 08:08 | PC.NURSE ---
Face Sheet faxed to [facility]
--- NOTE | 2022-05-26 11:00 | PC.NURSE ---
contacted by radiology. states pt was having pulse ox drops when laying flat. pt placed on 4 l nc and pulse ox increased
[2022-05-26] MEDS: HYDROmorphone HCL INJ (*CRX) 1 MG/ML SYR 0.5 MG IV PUSH (12:12)
[2022-05-26] MEDS: LACTATED RINGERS 1,000 ML 100 ML IV CONT (12:12)
--- NOTE | 2022-05-26 12:53 | PC.NURSE ---
pt to [facility] via stretcher.
--- NOTE | 2022-05-26 13:33 | PC.NURSE ---
return from [facility] pt adusted in bed. pt sleeping. no distress noted. family at bedside.
--- NOTE | 2022-05-26 14:52 | PC.NURSE ---
pts heartrate persistently high. repeat ekg completed showing a fib with rvr. pt sleeping. difficult to arouse. pt noted to be incontinent of urine.
--- NOTE | 2022-05-26 15:02 | ECG_ITS ---
Measurements Intervals [place] Rate: 142 P: AL: 0 QRS: 4 QRSD: 98 T: -16 QT: 251 QTc: 386 Interpretive Statements ATRIAL FIBRILLATION WITH RAPID VENTRICULAR RESPONSE NONSPECIFIC ST & T-WAVE ABNORMALITY- DIFFUSE LEADS BASELINE ARTIFACT- I, II, III, AVR, AVL, AVF, V1-V6 ABNORMAL ECG Electronically Signed On 05-26-2022 15:08:14 CDT by Varghese Fairbanks D.O.
--- NOTE | 2022-05-26 15:45 | PC.NURSE ---
increased lethargy noted. pt soiled his linens and pants. bed changed and pt repositioned to sitting position. pulse ox 88% room air.
--- NOTE | 2022-05-26 15:56 | PC.NURSE ---
Katerina - luiz [place] [facility] - declined Lavell - luiz malave - luiz
[2022-05-26 15:59] LABS: Hematocrit 38.9 % (42.0-52.0); Hemoglobin 12.8 g/dL (14.0-18.0); Mean Corpuscular HGB Conc 32.9 g/dl (32-36); Mean Corpuscular Hemoglobin 32.4 pg (26-34); Mean Corpuscular Volume 98.5 fl (80-100); Mean Platelet Volume 9.7 fl (7.4-10.4); Platelet Count Result 173 k/mm3 (150-375); Red Blood Count 3.95 M/mm3 (4.6-6.20); Red Cell Distribution Width 16.5 % (11.5-14.5)
--- NOTE | 2022-05-26 16:01 | PC.NURSE ---
resp at bedside for abgs. pt alert to verbal stimuli. appears more perky like he was earlier in the day. bp 101/62 p119 r 19 99% 4l nc
[2022-05-26 16:09] LABS: Anion Gap 11 mmol/L (8-16); Blood Urea Nitrogen 88 mg/dL (9-20); Calcium 8.7 mg/dL (8.4-10.2); Carbon Dioxide 24 mmol/L (22-30); Chloride 98 mmol/L (98-107); Estimated CRCL calculation 31 ml/min; Estimated Glomerular Filt Rate 26; Glucose 129 mg/dL (65-110); Potassium 4.3 mmol/L (3.4-5.0); Sodium 133 mmol/L (137-145)
[2022-05-26 16:21] LABS: NT Pro B Type Natriuretic Pept 729 pg/mL (5-100); Troponin I 0.012 ng/mL (0.000-0.034)
[2022-05-26 16:22] LABS: Alveolar/Arterial O2 Gradient 109.1 mmHg; Base Excess ABG -1.6 mEq/l (+/-2.0); Carboxyhemoglobin 1.2 % THb (0-2.0); Fractional Inspired Oxygen 36 %; HCO3 ABG 24.7 mEq/l (22.0-26.0); Oxygen Content ABG 17.4 %vol (16.0-22.0); Oxygen Saturation ABG 96.4 % (95.0-100.0); Oxyhemoglobin 94.7 % THb (90.0-100.0); PCO2 ABG 48.1 mmHg (35.0-45.0); PO2 ABG 91.8 mmHg (80.0-100.0); PO2 FiO2 Ratio Arterial Blood 2.55 %; Reduced Hemoglobin 4.1 %THb (0-5.0); Site Drawn LEFT RADIAL; pH ABG 7.329 (7.350-7.450)
[2022-05-26 16:23] LABS: Device NASAL CANNULA; Modified Allen's Test Pass
--- NOTE | 2022-05-26 16:29 | PC.NURSE ---
per [facility] transfer center, [facility] is miserably full with no bed avail. they are requesting further updates with any change in patient status. i.e. needing ICU placement versus a medical bed.
[2022-05-26 16:51] LABS: Band Neutrophils Percent 20 % (0-6); Lymphocytes Absolute Manual 0.63 K/mm3 (1.1-4.5); Monocytes Percent Manual 10 % (3-9); Neutrophils Absolute Manual 7.47 K/mm3 (1.3-6.7); Neutrophils Percent Manual 63 % (46-73); Platelet Estimate Adequate (Adequate); Total Cells Counted 100
[2022-05-26 17:17] LABS: Erythrocyte Sedimentation Rate 67 mm/hr (0-20)
[2022-05-26] MEDS: metroNIDAZOLE 500 MG/ISO 100ML 500 MG/100 ML BAG 100 MG IVPB (20:09)
[2022-05-26] MEDS: LIDOCAINE HCL 2% GEL UROJET 10 ML PKG (20:10)
[2022-05-27] VITALS (49 sets, daily range): BP systolic 110–117; BP diastolic 65–72; PULSE 90–140; RESP 15–30; TEMP 37; O2SAT 90–100
--- NOTE | 2022-05-27 01:03 | PC.NURSE ---
community ambassador nicci called [facility] and informed that there is still no bed avail for pt
--- NOTE | 2022-05-27 06:29 | PC.NURSE ---
Spoke to Caroline at [facility] regarding bed status. Still waiting for bed, they were to move patients around, if able to, but no current patients could be downgraded. This patient is going to an intermediate bed, there just isn't one available, yet.
[2022-05-27 06:49] LABS: Hematocrit 36.4 % (42.0-52.0); Hemoglobin 12.1 g/dL (14.0-18.0); Mean Corpuscular HGB Conc 33.2 g/dl (32-36); Mean Corpuscular Hemoglobin 32.8 pg (26-34); Mean Corpuscular Volume 98.6 fl (80-100); Mean Platelet Volume 9.8 fl (7.4-10.4); Platelet Count Result 170 k/mm3 (150-375); Red Blood Count 3.69 M/mm3 (4.6-6.20); Red Cell Distribution Width 16.8 % (11.5-14.5); White Blood Count 10.7 K/mm3 (4.5-10.0)
[2022-05-27 06:59] LABS: Anion Gap 7 mmol/L (8-16); Blood Urea Nitrogen 92 mg/dL (9-20); Calcium 8.7 mg/dL (8.4-10.2); Carbon Dioxide 28 mmol/L (22-30); Chloride 99 mmol/L (98-107); Estimated CRCL calculation 35 ml/min; Estimated Glomerular Filt Rate 30; Glucose 109 mg/dL (65-110); Potassium 4.1 mmol/L (3.4-5.0); Sodium 134 mmol/L (137-145)
[2022-05-27] MEDS: SODIUM CHLORIDE 0.9% IV 1,000 ML 999 ML IV CONT (06:59)
[2022-05-27] MEDS: MORPHINE SULFATE (*CRX) 4 MG/ML INJ IV PUSH (06:59)
[2022-05-27 07:27] LABS: INR 2.2; Partial Thromboplastin Time 32.8 SECONDS (22.3-36.8); Prothrombin Time 23.4 Seconds (11.1-14.7)
[2022-05-27 07:41] LABS: Band Neutrophils Percent 37 % (0-6); Large Platelets Present; Neutrophils Percent Manual 35 % (46-73); Platelet Clumps Present; Platelet Estimate Adequate (Adequate); Total Cells Counted 100
[2022-05-27 07:42] LABS: Eosinophils Absolute Manual 0.21 K/mm3 (0.02-0.5); Eosinophils Percent Manual 2 % (0-4); Lymphocytes Absolute Manual 2.03 K/mm3 (1.1-4.5); Lymphocytes Percent Manual 19 % (18-44); Metamyelocytes Percent 1 %; Monocytes Absolute Manual 0.64 K/mm3 (0.1-0.90); Monocytes Percent Manual 6 % (3-9)
[2022-05-27] MEDS: LACTATED RINGERS 1,000 ML 150 ML IV CONT (09:48)
--- NOTE | 2022-05-27 10:24 | PC.NURSE ---
Bed status = patient remains on wait list at [facility] they'll call when bed available
--- NOTE | 2022-05-27 11:04 | PC.NURSE ---
dr tafoya spoke with access line for [facility]
[2022-05-27 11:20] LABS: Lactic Acid Reflex 1.8 mmol/L (0.7-2.0)
--- NOTE | 2022-05-27 12:29 | PC.NURSE ---
[facility] called with bed assignment 354 T bed 2
--- NOTE | 2022-05-27 12:31 | PC.NURSE ---
ACCESS CALLED WITH BED ASSIGNMENT, ROOM 354T BED 2 AND NUMBER FOR REPORT, . ATTEMPTED TO GIVE REPORT AND THAT NURSE IS NOT AVAILABLE AT THIS TIME AND WILL CALL BACK. ALSO PT ROOM CHANGED TO 336.
[2022-05-27] MEDS: MORPHINE SULFATE (*CRX) 4 MG/ML INJ (13:56)
== END 2022-05-27 13:55 | disposition short-term general hospital (02) ==
PROVIDERS: Emergency Medicine; Emergency Provider Emergency Medicine; PCP Physician Assistant
DX: M00.9 Pyogenic arthritis, unspecified (principal); N17.9 Acute kidney failure, unspecified; M87.9 Osteonecrosis, unspecified; Z20.822 Contact with and (suspected) exposure to COVID-19; E78.5 Hyperlipidemia, unspecified; I10 Essential (primary) hypertension; M19.90 Unspecified osteoarthritis, unspecified site; Z87.891 Personal history of nicotine dependence; Z86.718 Personal history of other venous thrombosis and embolism; Z79.01 Long term (current) use of anticoagulants; R00.0 Tachycardia, unspecified; I49.1 Atrial premature depolarization; I48.91 Unspecified atrial fibrillation; M60.9 Myositis, unspecified; R06.02 Shortness of breath
CPT/HCPCS: 20610; 36415; 36600; 70450; 71046; 73502; 74176; 77002; 78580; 80048; 80053; 81001; 82375; 82805; 83050; 83605; 83880; 84484; 85025; 85610; 85652; 85730; 86140; 86850; 86900; 86901; 87040; 87086; 87147; 87181; 87186; 93005; 96361; 96365; 96366; 96367; 96375; 96376; 99285; A9540; C9803; J0131; J0696; J1170; J2270; J3370; J7030; J7120; Q9966; U0003; U0005

== ENCOUNTER → 2022-12-16 12:29 | Outpatient (CLI) | payer MEDICARE, SELFPAY ==
--- NOTE | ~2022-12-16 | MMUS_ITS ---
EXAMINATION: MM diagnostic roe RT w nuzhat, US breast RT complete HISTORY: Right breast lump. Tenderness. TECHNIQUE: Additional 3-D tomosynthesis images of the right breast were performed and synthetic 2-D i mages were generated. CAD analysis was submitted and interpreted. High resolution complete right [address] st ultrasound was performed. Comparison left MLO view performed. COMPARISON: Ultrasound dated 01/23/2022 BREAST PARENCHYMAL COMPOSITION: Breast composed of scattered areas of fibroglandular density FINDINGS: MAMMOGRAPHIC FINDINGS: There are no suspicious masses, calcifications or architectural distortion in either breast. There is a benign intramammary lymph node in the upper outer quadrant of the right breast. There is asymmetri c gynecomastia, right greater than left. ULTRASOUND: Complete US of all 4 quadrants of the right breast and retroareolar region was reviewed. Prominent br east bud in the subareolar location. There is an intramammary lymph node corresponding to the mammogr aphic finding at 11:00, 5 cm from the nipple measuring 7 mm. IMPRESSION: 1. No evidence for malignancy in the right breast. 2. Recommend follow-up clinical management for gynecomastia. BI-RADS Category 2: Benign finding(s). Reviewed, dictated and finalized at location A. T OPERATOR IMPRESSION: 1. No evidence for malignancy in the right breast. 2. Recommend follow-up clinical management for gynecomastia. BI-RADS Category 2: Benign finding(s).
== END ==
PROVIDERS: PCP Family Medicine; Visit Provider Family Medicine
DX: N63.10 Unspecified lump in the right breast, unspecified quadrant (principal); N64.4 Mastodynia; N62 Hypertrophy of breast
CPT/HCPCS: 76641; 77061; 77065; G0279

== ENCOUNTER 2024-03-18 12:29 | Outpatient (CLI) | payer MEDICARE, SELFPAY ==
--- NOTE | 2024-03-18 13:39 | PCRCNOTE ---
PT. WOULD BECOME PALE OR VERY RED FACED DURING TESTING. MONITORED HIS SPO2 DURING TESTING AND PT. WOULD DROP INTO THE MID 80S. CALLED PROVIDER TO NOTIFY HER. PT. GAVE GOOD EFFORT BUT OVERALL STURGGLED WITH TESTING DUE TO LUNG FUNCTION.
--- NOTE | 2024-03-18 14:46 | WPDPFTINT ---
PFT Procedure Performed PFT Procedure Performed Spirometry with Pre/Post Bronchodilator Plethysmography (Lung Vol) Diffusing Cap (DLCO) Flow Vol Loop PFT Interpretation Lung volumes were measured with the body plethysmography method. The diminished lung volumes are indicative of restrictive respiratory disease. In this setting, the elevated residual volume may indicate underlying neuromuscular weakness. Clinical correlation is recommended. Spirometry showed diminished expiratory flow rates and a normal FEV1 to FVC ratio of 83%, also consistent with restrictive respiratory disease. Following administration of a bronchodilator there was significant increase in the forced vital capacity. The flow-volume loop and especially the volume versus time tracing are consistent with suboptimal effort. Lung diffusion capacity is moderately reduced at 55% predicted. The diminished lung diffusion capacity coupled with a diminished alveolar volume and supernormal DLCO/VA ratio may indicate localized loss of lung volume, or incomplete lung expansion as seen in failure to take deep breath or neuromuscular dysfunction. Impression: Mild restrictive respiratory disease. Moderately reduced lung diffusion capacity.
== END 2024-03-18 12:30 | disposition home or self-care (01) ==
LOC: ANHPFT 12:29
PROVIDERS: PCP Family Medicine; Visit Provider Family Medicine
DX: R06.00 Dyspnea, unspecified (principal); R94.2 Abnormal results of pulmonary function studies
CPT/HCPCS: 94060; 94726; 94729

== ENCOUNTER 2024-03-22 08:33 | Outpatient (CLI) | payer MEDICARE, SELFPAY ==
--- NOTE | ~2024-03-22 | CT_ITS ---
Clinical Indication: Dyspnea CT Scan of the Chest with Contrast: Technique: Contiguous sections were acquired throughout the chest after intravenous administration of 100 cc of Omnipaque 350. Dose reduction technique was used on this scan by utilizing automated expos ure control and iterative reconstruction technique. The dose-length product (DLP) was 1108.60 mGy-cm. Findings: There is no evidence of any significant mediastinal, hilar or axillary lymphadenopathy. There is no f illing defect in the pulmonary arterial tree to suggest pulmonary embolus. There is no evidence of ao rtic dissection or aneurysm. There is no evidence of pleural or pericardial effusion. There is partial left lower lobe atelectatic change. Lungs are otherwise clear. Images through the upper abdomen reveal no abnormalities. There is diffuse DISH of the spine. Impression: No evidence of pulmonary embolus, aortic dissection, or aortic aneurysm. Partial left lower lobe atelectatic change, otherwise clear lungs. Reviewed, dictated and finalized at [facility]. Impression: No evidence of pulmonary embolus, aortic dissection, or aortic aneurysm. Partial left lower lobe atelectatic change, otherwise clear lungs.
== END 2024-03-22 08:34 | disposition home or self-care (01) ==
PROVIDERS: PCP Family Medicine; Visit Provider Family Medicine
DX: R09.02 Hypoxemia (principal); R91.8 Other nonspecific abnormal finding of lung field
CPT/HCPCS: 71275; Q9967

== ENCOUNTER 2024-06-20 09:08 | Outpatient (CLI) | payer MEDICARE, SELFPAY ==
--- NOTE | 2024-07-11 12:35 | WPDSLEEPSTUD ---
Sleep Study Date of Study: 06/20/24 Ordering Provider: Vish Goldstein MD Interpreting Physician: Melinda Conner DO Sleep Study Type: Polysomnogram Height: 1.96 m Weight: 122.47 kg Body Mass Index: 32.0 Neck Circumference (inches): 18 [place]: 4 Reason for Sleep Study 06/11/2024: Obtained a home sleep study from [place] from 03/20/2024. Patient with an AHI of 25.2. Patient had 112 apneas, 110 obstructive events, 2 central events. Oxygenation 190 minutes below 85%. Sleep History The patient is a 74-year-old male that had a sleep study ordered by his manager of [employer] for evaluation of sleep apnea. The patient denies awakening from sleep short of breath. He denies awaking at night with heartburn, belching or cough. He denies snoring. He occasionally has trouble sleeping when he has a cold. He denies waking up gasping for air throughout the night. He occasionally has breathing problems at night observed by himself or others. He denies sweating excessively at night. He denies having heart palpitations or irregular heartbeats during the night. He occasionally falls asleep during the day but never while driving. He denies sleep paralysis, cataplexy and hypnagogic / hypnopompic hallucinations. He denies having trouble at school or work due to sleepiness. He denies feeling afraid of going to sleep. He denies having nightmares. He denies remembering his dreams. He denies having thoughts racing through his mind. He denies feeling sad, depressed or anxious. He denies having muscular tension. He denies noticing parts of his body jerk. He denies kicking during the night. He denies having crawling and aching feelings in his legs but rarely has leg pain during the night. He denies grinding his teeth during sleep and denies awakening with morning jaw pain. He is frequently bothered by pain during the day and occasionally awakened by pain during the night. He occasionally wakes up feeling stiff in the morning. He occasionally wakes up with sore or achy muscles. He frequently wakes up with pain in the neck, spine and other joints. He goes to bed at midnight on both weekdays and weekends. It takes him 10-30 minutes to fall asleep. He wakes up 2-4 times for unknown reasons but is able fall back asleep within 5-10 minutes. He wakes up at 6:00 a.m. on both weekdays and weekends. He typically gets 5-6 hours of sleep per night. He will stay in bed for 5-10 minutes after waking up in the morning. He currently lives with his . He denies consuming any caffeinated beverages within 2 hours of bedtime. He denies engaging in physical exercise before bedtime. He will watch television before falling asleep. He will occasionally take naps in the afternoon or the evening and they are refreshing. He consumes 1 cup of caffeinated beverage per day. He is a former smoker. He consumes 2-3 beers per day. He denies recreational drug use. [facility] Past Medical History Medical History Abnormal tympanic membrane of right ear BMI 30.0-30.9,adult Colon cancer screening Diabetes History of blood clots Hypercholesterolemia Hyperlipidemia Hypertension Lumbar spondylosis Osteoarthritis, multiple sites Perforated left tympanic membrane on examination Prostate cancer screening Skin tag Surgical History Surgical History History of sinus surgery Family History Family History Father Family history of lung cancer Mother Diabetes mellitus Social History Social History Smoking packs per day: 1.5 Smoking cigarettes per day: 30.0 Years smoked: 45 Smoking pack-years: 67.50 Smoking status: Former smoker Tobacco type: cigarettes Second hand tobacco smoke exposure: No Smoking end date: 11/13/07 Alcohol
[2024-07-11 15:52] VITALS: BMI 32.0
== END 2024-06-21 06:08 | disposition home or self-care (01) ==
LOC: ANHCSM 09:09
PROVIDERS: PCP Family Medicine; Visit Provider Internal Medicine Pulmonary Disease
DX: G47.10 Hypersomnia, unspecified (principal); G47.34 Idiopathic sleep related nonobstructive alveolar hypoventilation
CPT/HCPCS: 95810

== ENCOUNTER 2024-06-26 08:10 | Outpatient (CLI) | payer MEDICARE, SELFPAY ==
--- NOTE | ~2024-06-26 | CT_ITS ---
EXAMINATION:CT diagnostic chest wo con DATE: 06/26/2024 09:40 INDICATION: Other disorders of lung. TECHNIQUE: Computed tomography (CT) of the chest was performed without intravenous contrast. Automate d exposure control and iterative reconstruction technique were employed. The dose-length product (DLP ) was 444.60 mGy-cm. COMPARISON: Chest CT 03/22/2024 FINDINGS: There is marked elevation of left hemidiaphragm. There is mild atelectasis in the lungs, wo rst at left lung base. No pleural effusion. The heart size is normal. There are coronary artery calci fications. There are calcifications of the aortic valve. There is a 4.5 cm cyst in left kidney. There is bilateral gynecomastia. There are bridging endplate osteophytes at multiple levels in the spine, consistent with diffuse idiopathic skeletal hyperostosis (DISH). There is severe cervical and thoraci c spondylosis. IMPRESSION: 1. Chronic marked elevation of left hemidiaphragm. Reviewed, dictated and finalized at location A.
[2024-06-26 08:15] VITALS: PULSE 56; O2SAT 94
[2024-06-26 08:20] VITALS: PULSE 98; O2SAT 90
[2024-06-26 08:30] VITALS: PULSE 60; O2SAT 93
--- NOTE | 2024-06-26 08:39 | ECHO_ITS ---
Patient Info Name: Yonis Diaz Age: 74 years : 1950 Gender: Male Ht: 77 in Wt: 270 lbs BSA: 2.61 m2 HR: 54 bpm BP: 126 / 84 mmHg Heart Rhythm: Sinus Rhythm Technical Quality: Fair Exam Date: 06/26/2024 8:50 AM Exam Location: Echo Lab Patient Status: Outpatient Admit Date: 06/26/2024 Staff Ordering Physician: Vish Goldstein MD Director Employee Safety And Health: Brittney Pearce RDCS Attending Provider: Vish Goldstein MD Referring Physician: Triston PALACIOS; Exam Type: CA echo doppler color flow Study Info Indications R06.09 - Other forms of dyspnea Complete two-dimensional, color flow and Doppler transthoracic echocardiogram is performed. Summary 1. Complete two-dimensional, color flow and Doppler transthoracic echocardiogram is performed. 2. Left ventricular chamber dimension is normal. 3. Left ventricular systolic function is normal, estimated at 60-65%. 4. The left ventricular diastolic function is abnormal. 5. E/e' 10 is mildly elevated. 6. Right atrial chamber dimension is mildly enlarged. 7. There is moderate aortic valve sclerosis. 8. The mitral valve has moderately calcified annulus. 9. There is trace tricuspid valve regurgitation. 10. No pulmonary hypertension, estimated pulmonary arterial systolic pressure is 25 mmHg. 11. There is trace pulmonic regurgitation. Left Ventricle E/e' 10 is mildly elevated. Left ventricular chamber dimension is normal. Left ventricular systolic function is normal, estimated at 60-65%. The left ventricular diastolic function is abnormal. Right Ventricle Right ventricular chamber dimension is normal. Right ventricular systolic function is normal. Left Atria Left atrial chamber dimension is normal. Right Atria Right atrial chamber dimension is mildly enlarged. Aortic Valve The aortic valve is trileaflet. There is moderate aortic valve sclerosis. There is no aortic valve stenosis. There is no aortic valve regurgitation. Pulmonic Valve There is trace pulmonic regurgitation. Mitral Valve The mitral valve has moderately calcified annulus. There is no mitral valve stenosis. There is no mitral valve regurgitation. Tricuspid Valve There is trace tricuspid valve regurgitation. No pulmonary hypertension, estimated pulmonary arterial systolic pressure is 25 mmHg. Pericardium/Pleural There is no pericardial effusion. Inferior Vena Cava Normal inferior vena cava with >50% collapse upon inspiration consistent with normal right atrial pressure, 5 mmHg. Aorta The aortic root size at the sinus of Valsalva is normal. Left Ventricular Outflow Tract Name Value Normal LVOT 2D LVOT Diameter 2.0 cm LVOT Doppler LVOT Peak Gradient 5 mmHg LVOT Mean Gradient 3 mmHg LVOT VTI 24 cm LVOT VTI/AV VTI Ratio 0.8 LVOT Stroke Volume 73 ml LVOT CO 3.7 l/min LVOT CI 1.4 l/min/m2 Pulmonic Valve Name Value Normal
--- NOTE | 2024-06-26 09:18 | HOMEO2EVAL ---
Evaluation was performed at [facility] Home Oxygen Evaluation RC: Home Oxygen (O2) Evaluation Start: 06/26/24 09:16 Freq: Status: Active Protocol: RPE Activity Type Activity Date Activity User E-sign Co-sign Detail Recorded Client Recorded Date Recorded By Document 06/26/24 08:15 DJO [email or web address] 06/26/24 09:18 DJO Document 06/26/24 08:20 [email or web address] [email or web address] 06/26/24 09:18 DJO Document 06/26/24 08:30 [email or web address] [email or web address] 06/26/24 09:18 DJO 06/26/24 06/26/24 06/26/24 08:15 08:20 08:30 Home O2 Evaluation [Oxygen] -Test Phase Resting Exercise Resting -Oxygen Delivery Room Air Room Air Room Air [Pulse Oximetry] -Pulse Oximetry (90-100 %) 94 90 93 [Pulse Rate] -Pulse Rate (60-100 beats/min) 56 L 98 60 [Evaluation] -Activity Tolerance Fair [Exercise] -Ambulation Distance (feet) 500 -Ambulation Distance (meters) 152.39 [Comments] -Home Oxygen Evaluation Comments PT WALKED WITH WHEELED WALKER [Charges] -Evaluation Charges O2 Evaluation by Pulmonary
== END 2024-06-26 08:11 | disposition home or self-care (01) ==
PROVIDERS: PCP Family Medicine; Visit Provider Internal Medicine Pulmonary Disease
DX: R06.09 Other forms of dyspnea (principal); R06.02 Shortness of breath; J98.4 Other disorders of lung
CPT/HCPCS: 71250; 93306; 94618

== ENCOUNTER 2024-07-24 13:16 | Outpatient (CLI) | payer MEDICARE, SELFPAY ==
--- NOTE | ~2024-07-24 | XR_ITS ---
EXAMINATION: XR sniff test with CXR2V DATE: 07/24/2024 14:13 INDICATION: Left diaphragm paralysis. TECHNIQUE: Frontal and lateral views of the chest were obtained. I performed fluoroscopy of the chest while the patient performed normal breathing, deep respiration, and forceful sniffing. The number of fluoroscopy images was 688. The fluoroscopy exposure time was 0.4 minutes. COMPARISON: chest CT 06/26/24, 05/26/22 FINDINGS: CHEST TWO VIEWS: There is marked elevation of left hemidiaphragm. There is mild atelectasis at left l [place] base. No pneumonia, pleural effusion, or pneumothorax. The heart size is normal. SNIFF TEST: There is marked elevation of left hemidiaphragm at rest. The left diaphragm moves mildly less than the right diaphragm with breathing tasks. No paradoxical motion. IMPRESSION: 1. Marked elevation of left hemidiaphragm at rest. Mildly decreased motion of the left diaphragm rela tive to the right with breathing tasks. Reviewed, dictated and finalized at location A. IMPRESSION: 1. Marked elevation of left hemidiaphragm at rest. Mildly decreased motion of t he left diaphragm relative to the right with breathing tasks.
== END 2024-07-24 13:17 | disposition home or self-care (01) ==
LOC: ANHIMG 13:18
PROVIDERS: PCP Family Medicine; Visit Provider Internal Medicine Pulmonary Disease
DX: S27.809A Unspecified injury of diaphragm, initial encounter (principal); X58.XXXA Exposure to other specified factors, initial encounter
CPT/HCPCS: 71046; 76000

== ENCOUNTER 2025-11-07 07:41 | Outpatient (CLI) | payer MEDICARE, SELFPAY ==
--- NOTE | ~2025-11-07 | XR_ITS ---
XR hip LT 2V w AP pelvis 11/07/2025 07:59 Indication: Left hip pain Procedure: AP pelvis and 2 views left hip Comparison: 05/26/2022 Findings: There is mild-moderate osteoarthritis of the left hip. There is a right hip arthroplasty. Pelvic rings intact. Mild symmetric degenerative changes of the sacroiliac joints. No acute fracture or traumatic malalignment. Impression: 1: Mild-moderate osteoarthritis of the left hip. Reviewed, dictated and finalized at location [employer] Impression: 1: Mild-moderate osteoarthritis of the left hip.
== END 2025-11-07 07:42 | disposition home or self-care (01) ==
PROVIDERS: PCP Nurse Practitioner Family
DX: M16.12 Unilateral primary osteoarthritis, left hip (principal)
CPT/HCPCS: 73502